=== PATIENT | female | born 1960 | race Caucasian/White ===

== ENCOUNTER 2018-03-07 07:39 | Day surgery (SDC) ==
[2018-03-07] MEDS ORDERED: LIDOCAINE 1% 20 ML MDV ID STA (08:05)
[2018-03-07] MEDS ORDERED: DIPRIVAN 20 ML VIAL IVP ONE (09:20)
[2018-03-07 15:23] VITALS: BP 118/67; TEMP 98.6
--- NOTE | 2018-03-08 10:58 | OP ---
PROCEDURE: COLONOSCOPY TO THE CECUM WITH SNARE POLYPECTOMY. ENDOSCOPIST: Willie QUEZADA M.D. INDICATION: HISTORY OF ADENOMATOUS POLYPS. INSTRUMENT: [id number]. MEDICATION: PER ANESTHESIA. DATE OF LAST COLONOSCOPY: 2014 PROCEDURE: The patient was positioned for colonoscopy. The digital rectal exam was negative. The colonoscope was inserted through the anus and advanced to the cecum. The cecum was identified using the ileocecal valve and the appendiceal orifice as landmarks. The scope was slowly withdrawn through an adequately prepped colon. Warren Bowel prep score equals 9. Extensive melanosis noted throughout the colon. On insertion we found a flat polyp at 40cm removed using snare cautery. I removed this in two pieces with compete resection being noted. The withdraw exam was otherwise normal. Retroflex exam was otherwise normal. She tolerated the procedure without immediate complication. Withdraw time 8 minutes and 4 seconds. PLAN: 1. Repeat colonoscopy in 3 years. BRITNI
== END 2018-03-07 10:15 | disposition home or self-care (01) ==
LOC: SURG 07:39
PROVIDERS: ATTEND Internal Medicine Gastroenterology
DX: Z86.010 Personal history of colon polyps (principal); D12.6 Benign neoplasm of colon, unspecified